=== PATIENT | female | born 1980 | race Caucasian/White ===

== ENCOUNTER 2017-03-14 12:40 | Inpatient (IN) | payer MEDICAID ==
[~2017-03-14] VITALS: Ht 157.5 cm; Wt 84.8 kg
[2017-03-14 12:46] VITALS: BP 156/109
[2017-03-14] MEDS ORDERED: NACL 0.9% 1,000 ML IV SCH (13:03)
[2017-03-14] MEDS ORDERED: KETOROLAC 30 MG/ML VIAL IVP ONE (13:05)
[2017-03-14] MEDS ORDERED: ONDANSETRON 4 MG/2 ML VIAL IVP ONE (13:05)
--- NOTE | 2017-03-14 13:36 | NUR ---
PATIENT PRESENTS TO ED WITH RUQ PAIN WITH MILD NAUSEA . PT STATES . DENIES V/D; SKIN IS PINK/WARM/DRY; AAOX4 WITH EVEN AND STEADY GAIT; LUNGS CLEAR BL; HR EVEN AND REGULAR; PT DENIES ANY FEVER, CP, SOB, OR COUGH AT THIS TIME; PATIENT STATES PAIN OF 9/10 AT THIS TIME; VSS; PATIENT POSITIONED FOR COMFORT; HOB ELEVATED; BEDRAILS UP X2; BED DOWN. ER MD MADE AWARE OF PT STATUS.
--- NOTE | 2017-03-14 13:37 | NUR ---
LABS COLLECTED AND SENT---PT AWAITS ULTRASOUND
[2017-03-14 13:43] LABS: BASOPHILS # (AUTO) 0.3 K/uL (0.00-0.22); BASOPHILS % (AUTO) 3.5 % (0.0-2.0); EOSINOPHILS # (AUTO) 0.1 K/uL (0-0.4); EOSINOPHILS % (AUTO) 0.9 % (0.0-4.0); HEMATOCRIT 24.9 % (36-48); HEMOGLOBIN 7.7 g/dL (12.0-16.0); LYMPHOCYTES # (AUTO) 1.5 K/uL (2.5-16.5); LYMPHOCYTES % (AUTO) 16.4 % (20.5-51.1); MEAN CORPUSCULAR HEMOGLOBIN 21 pg (27-31); MEAN CORPUSCULAR HGB CONC 31 g/dL (33-37); MEAN CORPUSCULAR VOLUME 66 fL (80-94); MONOCYTES # (AUTO) 0.7 K/uL (0.8-1.0); NEUTROPHILS # (AUTO) 6.8 K/uL (1.8-7.7); NEUTROPHILS % (AUTO) 72.2 % (42.2-75.2); PLATELET COUNT (AUTO) 403 K/uL (140-450); RED BLOOD CELL COUNT(AUTO) 3.76 MIL/uL (4.20-5.40); RED CELL DISTRIBUTION WIDTH 17.7 % (11.6-13.7); WHITE BLOOD COUNT (AUTO) 9.4 K/uL (4.8-10.8)
--- NOTE | 2017-03-14 14:00 | NUR ---
ULTRASOUND AT BEDSIDE ANA MARÍA Ac RN
[2017-03-14 14:04] LABS: ALBUMIN 2.8 g/dL (3.4-5.0); ANION GAP 7.7 (8-16); CARBON DIOXIDE 29.2 mmol/L (21-32); CREATININE 0.8 mg/dL (0.6-1.3); TOTAL BILIRUBIN 0.3 mg/dL (0.0-1.0)
[2017-03-14 14:09] LABS: POTASSIUM 2.9 mmol/L (3.5-5.1)
[2017-03-14 14:10] LABS: PROTHROMBIN TIME 10.9 secs (10.8-13.4)
[2017-03-14] MEDS ORDERED: MAG SULF 2000 MG/WATER PREMIX 50 ML IV ONE ×2 (14:15→15:00)
[2017-03-14] MEDS ORDERED: MORPHINE SULFATE 4 MG/ML SYR IVP ONE (14:15)
[2017-03-14] MEDS ORDERED: KCL 20 MEQ/WATER INJ PREMIX 100 ML IV ONE (14:15)
--- NOTE | 2017-03-14 14:16 | NUR ---
CRITICAL LAB POTASSIUM LOW--- NOTIFIED
[2017-03-14] MEDS ORDERED: PIPERACILLIN/TAZOBACTAM 3.375 GM in DEXTROSE 5% 50 ML IV ONE (14:30)
[2017-03-14] MEDS ORDERED: LORazepam 2 MG/ML VIAL IVP PRN (14:40)
[2017-03-14] MEDS ORDERED: ONDANSETRON 4 MG/2 ML VIAL IVP PRN (14:40)
[2017-03-14 14:49] LABS: BILIRUBIN,URINE NEGATIVE (NEGATIVE); BLOOD, URINE TRACE-I (NEGATIVE); COLOR,URINE YELLOW (YELLOW); LEUKOCYTE ESTERASE ,URINE 1+ (NEGATIVE); NITRITE, URINE NEGATIVE (NEGATIVE); PH,URINE 6.5 (5.0-9.0); UGLUCOSE NEGATIVE (NEGATIVE)
[2017-03-14] MEDS ORDERED: PIPERACILLIN/TAZOBACTAM 3.375 GM VIAL IV ONE (14:49)
[2017-03-14 15:11] LABS: APPEARANCE,URINE HAZY (CLEAR)
[2017-03-14 15:15] LABS: RBC,URINE 0-5 (RARE) /HPF (0-5)
[2017-03-14 16:00] VITALS: BP 126/83
--- NOTE | 2017-03-14 16:00 | NUR ---
PT [facility]. PT IS ALERT AND ORIENTED X 4. NORMAL SINUS RHYTHM ON MONITOR. PT IS ON ROOM AIR, O2 SAT 100%. BILATERAL LUNGS CLEAR UPON AUSCULTATION. PERIPHERAL IVS G20 TO RIGHT FOREARM AND LEFT ANTECUBITAL PATENT AND INTACT, INFUSING KCL AND MAG SULFATE ORDERED. ABDOMEN SOFT, TENDER, BOWEL SOUNDS PRESENT X 4 QUADRANTS. PT C/O MILD ABDOMINAL PAIN OF 3 OUT OF 10, STATED PAIN IS TOLERABLE AT THIS TIME. NO EDEMA NOTED. VSS, AFEBRILE. NO SIGNS OF ACUTE DISTRESS AT THIS TIME. DAUGHTER AT BEDSIDE. BED IN LOW POSITION AND CALL LIGHT WITHIN REACH. NEEDS WELL ATTENDED, SAFETY MEASURES ENSURED. WILL CONTINUE TO MONITOR.
[2017-03-14] MEDS: DEXT 5% /NACL 0.9% 1,000 ML IV SCH (18:31)
--- NOTE | 2017-03-14 19:05 | NUR ---
PT RESTING IN BED, ABLE TO MAKE NEEDS KNOWN. NO CHANGE IN LOC. WILL CONTINUE TO MONITOR.
--- NOTE | 2017-03-14 19:27 | NUR ---
REPORT GIVEN TO NOC SHIFT RN FOR CONTINUITY OF CARE. PT ON STABLE CONDITION.
--- NOTE | 2017-03-14 19:30 | NUR ---
RECEIVED PATIENT ON BED, ASLEEP; BREATHING EVEN AND UNLABORED.CARDIACSCOPE SHOWS ON SINUS RHYTHM HR 94/MIN. COMMENCING ON IVF D5NS 100 ML/HR VIA LEFT AC G20 IV CANNULA. KEPT STILL ON NPO ORDERED.
[2017-03-14 20:00] VITALS: BP 143/82
--- NOTE | 2017-03-14 20:00 | NUR ---
S/B FAMILY; INFORMED AND AWARE THAT PATIENT WILL BE TRANSFERRED TO TELE 119B ANYTIME SOON TONIGHT.
--- NOTE | 2017-03-14 20:30 | NUR ---
FOR TRANSFER TO TELE UNIT, REPORT GIVEN TO HOMERO GRAY.
--- NOTE | 2017-03-14 20:55 | NUR ---
TRANSFERRED TO TELE ROOM 119B PER BED; ENDORSED TO TELE NURSE FOR CONTINUITY OF CARE.
[2017-03-14 21:00] VITALS: BP 134/87
--- NOTE | 2017-03-14 21:00 | NUR ---
ADMITTED PATIENT TO THE TELE UNIT, PATIENT WAS SLEEPING IN BED, BUT EASY TO AROUSE, NO S/S OF DISTRESS NOTED, RESPIRATION EVEN AND UNLABORED, IV PATENT AND INTACT, INFUSING D5 NS AT 100ML/HR. VITAL SIGNS STABLE, TELE MONITOR PLACED ON PATIENT, ORIENTED PATIENT TO THE ROOM. CALL LIGHT WITHIN REACH, SAFETY MEASURE ENSURED, WILL CONTINUE TO MONITOR.
[2017-03-15] VITALS: BP 139/86
--- NOTE | 2017-03-15 00:12 | NUR ---
PATIENT WAS SLEEPING, EASY TO AROUSE. VITAL SIGNS STABLE, PATIENT STATED, " I HAVE BAD HEADACHE." UPON PAIN ASSESSMENT, PAIN 9/10, CALL LIGHT WITHIN REACH, SAFETY MEASURE ENSURED ,WILL CONTINUE TO MONITOR.
[2017-03-15] MEDS: MORPHINE SULFATE 4 MG/ML SYR IVP PRN ×4 (00:43→20:32)
[2017-03-15] MEDS: DEXT 5% /NACL 0.9% 1,000 ML IV SCH (00:44)
--- NOTE | 2017-03-15 00:44 | NUR ---
PATIENT WAS SLEEPING, EASY TO AROUSE, BP 139/86, HR 104, PAIN MEDICATION GIVEN BASED ON THE PAIN LEVEL /10. CALL LIGHT WITHIN REACH, SAFETY MEASURE ENSURED, WILL CONTINUE TO MONITOR.
--- NOTE | 2017-03-15 02:46 | NUR ---
NO CHANGE IN CONDITION, PATIENT WAS SLEEPING, BUT EASY TO AROUSE, NO S/S OF DISTRESS NOTED, RESPIRATION EVEN AND UNLABORED, CALL LIGHT WITHIN REACH, SAFETY MEASURE ENSURED, WILL CONTINUE TO MONITOR.
[2017-03-15 04:00] VITALS: BP 136/87
[2017-03-15] MEDS: MORPHINE SULFATE 2 MG/ML SYR IVP PRN ×3 (05:49→17:55)
--- NOTE | 2017-03-15 05:58 | NUR ---
PATIENT STATED PAIN 6/10, BP 137/84, HR 102, MORPHINE GIVE ORDERED. WILL CONTINUE TO MONITOR.
[2017-03-15 06:27] LABS: BASOPHILS # (AUTO) 0.1 K/uL (0.00-0.22); BASOPHILS % (AUTO) 1.2 % (0.0-2.0); EOSINOPHILS # (AUTO) 0.1 K/uL (0-0.4); EOSINOPHILS % (AUTO) 1.5 % (0.0-4.0); HEMATOCRIT 23.4 % (36-48); HEMOGLOBIN 7.1 g/dL (12.0-16.0); LYMPHOCYTES # (AUTO) 2.2 K/uL (2.5-16.5); MEAN CORPUSCULAR HEMOGLOBIN 20 pg (27-31); MEAN CORPUSCULAR HGB CONC 31 g/dL (33-37); MEAN CORPUSCULAR VOLUME 67 fL (80-94); MONOCYTES # (AUTO) 0.8 K/uL (0.8-1.0); MONOCYTES % (AUTO) 8.1 % (1.7-9.3); NEUTROPHILS # (AUTO) 6.4 K/uL (1.8-7.7); NEUTROPHILS % (AUTO) 66.2 % (42.2-75.2); PLATELET COUNT (AUTO) 392 K/uL (140-450); RED BLOOD CELL COUNT(AUTO) 3.49 MIL/uL (4.20-5.40); RED CELL DISTRIBUTION WIDTH 17.4 % (11.6-13.7); WHITE BLOOD COUNT (AUTO) 9.6 K/uL (4.8-10.8)
--- NOTE | 2017-03-15 06:44 | NUR ---
PATIENT IS SLEEPING, RESPIRATION EVEN AND UNLABORED, NO S/S OF DISTRESS NOTED, CALL LIGHT WITHIN REACH, SAFETY PRECAUTION MAINTAINED, WILL CONTINUE TO MONITOR.
[2017-03-15 06:51] LABS: ALBUMIN 2.4 g/dL (3.4-5.0); ANION GAP 7.1 (8-16); CARBON DIOXIDE 28.6 mmol/L (21-32); CREATININE 0.7 mg/dL (0.6-1.3); POTASSIUM 3.7 mmol/L (3.5-5.1); TOTAL BILIRUBIN 0.3 mg/dL (0.0-1.0)
--- NOTE | 2017-03-15 07:08 | NUR ---
ENDORSED PLAN OF CARE TO DAY SHIFT HOMERO BRENNAN, PATIENT IS IN STABLE CONDITION, NO S/S OF DISTRESS NOTED.
--- NOTE | 2017-03-15 07:30 | NUR ---
RECEIVED PT IN BED. ASLEEP. AROUSABLE TO VOICE. ALERT ORIENTEDX4. NO SOB NOTED. PT AMBULATORY. SAFETY PRECAUTION IN PLACE. CALL LIGHT WITHIN REACH.
[2017-03-15 08:00] VITALS: BP 134/77
--- NOTE | 2017-03-15 09:09 | NUR ---
PATIENT HAS BEEN SCREENED AND CATEGORIZED MODERATE NUTRITION RISK. PATIENT WILL BE SEEN WITHIN 3-5 DAYS OF ADMISSION. 03/17/17-03/19/[address]
[2017-03-15] MEDS: DEXT 5% / NACL 0.45% 1,000 ML IV SCH ×2 (10:50→20:48)
--- NOTE | 2017-03-15 11:14 | NUR ---
SPOKE WITH DR. LIEBERMAN AND MADE AWARE OF LAB AND GB US RESULT.
--- NOTE | 2017-03-15 11:16 | NUR ---
SPOKE TO DR. SANTIZO AND HE SAID HIS NOT AVAILABLE AND CALL DR. VALENCIA, PAGEGómez VALENCIA.
[2017-03-15 11:53] VITALS: BP 106/73
--- NOTE | 2017-03-15 15:17 | NUR ---
RECEIVED A CALL FROM DR. VALENCIA. WITH AN ORDER MADE FOR STAT CT ABDOMEN WITHOUT CONTRAST AND CARRIED OUT TORB. AND TO KEEP PT NPO FOR NOW.
--- NOTE | 2017-03-15 15:55 | NUR ---
RESEARCH DIRECTOR CAME TO SCHOOL CLEANER PT FOR CT OF ABDOMEN WITHOUT CONTRAST. PROVIDED WITH TICKET TO RIDE. PT TRANSFERRED BY WHEELCHAIR.
[2017-03-15 16:00] VITALS: BP 125/74
--- NOTE | 2017-03-15 17:12 | NUR ---
CT RESULT CALLED TO DR. CHANDLER.
--- NOTE | 2017-03-15 17:24 | NUR ---
PAGED DR. VALENCIA REGARDING RESULT OF CT ABDOMEN. AWAITING CALL BACK.
--- NOTE | 2017-03-15 18:58 | NUR ---
PT KEPT CLEAN, DRY, AND COMFORTABLE NEEDS ATTENDED, FOLLOWED UP WITH FNS REGARDING DIET CHANGE OF PT. NO SOB NOTED. DENIES ANY PAIN OR DISCOMFORT AT THIS TIME. FAMILY AT BEDSIDE. WILL ENDORSE TO NEXT SHIFT, PT ON STABLE CONDITION. FOR CONTINUITY OF CARE.
--- NOTE | 2017-03-15 19:21 | NUR ---
PT MADE AWARE OF DOCTOR ORDER FOR LAP MARIMAR TOMORROW. PT VERBALIZED UNDERSTANDING AND SIGNED CONSENT. CONSENT IN TO CHART. DR. VALENCIA TO SEE AND EXPLAIN TO PT PROCEDURE.
--- NOTE | 2017-03-15 19:41 | NUR ---
RECEIVED REPORT FROM DAY RN ANU, PATIENT RESTING IN BED, NO S/S OF DISTRESS NOTED, AWAKE ALERT ORIENTED X 4, RESPIRATION EVEN AND UNLABORED, IV PATENT AND INTACT, INFUSING D5 1/2NS AT 100ML/HR, CALL LIGHT WITHIN REACH, SAFETY MEASURE ENSURED, WILL CONTINUE TO MONITOR.
[2017-03-15 19:54] VITALS: BP 132/82
[2017-03-15] MEDS: LEVOFLOXACIN 500 MG/D5W PREMIX 100 ML IV SCH (20:22)
--- NOTE | 2017-03-15 20:41 | NUR ---
DUE MEDICATION GIVEN, PATIENT TOLERATED WELL. NO S/S OF DISTRESS NOTED, RESPIRATION EVEN AND UNLABORED, WILL CONTINUE TO MONITOR.
--- NOTE | 2017-03-15 20:46 | NUR ---
DR. VALENCIA CAME AND EXAMINED THE PATIENT AT THE BEDSIDE.
[2017-03-15] MEDS ORDERED: metroNIDAZOLE 500 MG/NS PREMIX 100 ML IV ONE (20:53)
[2017-03-15] MEDS: metroNIDAZOLE 250 MG/NS PREMIX 50 ML IV SCH (21:00)
--- NOTE | 2017-03-15 21:29 | NUR ---
JEWISH HISTORY PROFESSOR GAVE ME FLAGYL 500MG/100ML, WASTED 250MG/50ML, ADMINISTER FLAGYL 250MG/50ML, HOMERO GONZALES IS THE WITNESS.
[2017-03-16] VITALS (8 sets, daily range): BP systolic 118–136; BP diastolic 71–90
[2017-03-16] MEDS: MORPHINE SULFATE 2 MG/ML SYR IVP PRN ×4 (00:22→17:54)
--- NOTE | 2017-03-16 00:31 | NUR ---
PATIENT WAS SLEEPING, EASY TO AROUSE, VITAL SIGNS TAKEN, STABLE. PATIENT STATED," HEAD HURTS." UPON ASSESSMENT, PAIN 5/10, PAIN MEDICATION GIVEN, WILL CONTINUE TO MONITOR.
--- NOTE | 2017-03-16 02:18 | NUR ---
NO CHANGE IN CONDITION, PATIENT IS SLEEPING, RESPIRATION EVEN AND UNLABORED, CALL LIGHT WITHIN REACH, SAFETY MEASURE ENSURED, WILL CONTINUE TO MONITOR.
[2017-03-16] MEDS ORDERED: metroNIDAZOLE 500 MG/NS PREMIX 100 ML IV ONE (03:16)
[2017-03-16] MEDS: metroNIDAZOLE 250 MG/NS PREMIX 50 ML IV SCH ×3 (04:29→21:54)
--- NOTE | 2017-03-16 04:30 | NUR ---
LOADING MANAGER GAVE ME FLAGYL 500MG/100ML, WASTED 250MG/50ML, ADMINISTER FLAGYL 250MG/50ML, HOMERO FISHER IS THE WITNESS.
--- NOTE | 2017-03-16 05:19 | NUR ---
DUE MEDICATION GIVEN, PATIENT TOLERATED WELL, NO S/S OF DISTRESS NOTED, RESPIRATION EVEN AND UNLABORED, O2SAT 88%. CALL LIGHT WITHIN REACH, SAFETY MEASURE ENSURED, WILL CONTINUE TO MONITOR. Addendum: 03/16/17 at 0521 by Iris De La Cruz RN WRONG PATIENT
[2017-03-16] MEDS: DEXT 5% / NACL 0.45% 1,000 ML IV SCH ×4 (06:55→18:50)
--- NOTE | 2017-03-16 07:05 | NUR ---
ENDORSED PLAN OF CARE TO DAY RN ANABELL. PATIENT IS STABLE. NO S/S OF DISTRESS NOTED.
--- NOTE | 2017-03-16 07:06 | NUR ---
RECEIVED REPORT FROM RECEIVER BULK SYSTEM NURSE. PATIENT IN STABLE CONDITION. NO DISTRESS NOTED. PATIENT IS SLEEPING, AROUSABLE BY VOICE. RESPIRATIONS EVEN, UNLABORED, ON ROOM AIR. IV SITE INTACT, PATENT, AND INFUSING IVF ORDERS. AAOX4, CALM, COOPERATIVE, SKIN COLOR APPROPRIATE TO ETHNICITY, WARM TO TOUCH. PATIENT AWARE THAT SHE WILL BE HAVING SURGERY TODAY SCHEDULED AT 0800. ABDOMEN SOFT, NON-DISTENDED. PAIN ON ABD WITHIN TOLERABLE AT THIS TIME. LUNGS CTA ON ALL LOBES. REVIEWED PLAN OF CARE WITH PATIENT. PATIENT VERBALIZED UNDERSTANDING. SAFETY MEASURES IN PLACE, CALL LIGHT WITHIN REACH, FALL PREVENTIONS IN PLACE. WILL CONTINUE TO MONITOR.
--- NOTE | 2017-03-16 07:30 | NUR ---
PATIENT TAKEN TO OR BY BARBARA/BED. WILL CONTINUE TO MONITOR.
[2017-03-16] MEDS ORDERED: HYDROmorphone PFS 2 MG/ML SYR ONE (08:08)
[2017-03-16] MEDS ORDERED: fentaNYL 0.05 MG/ML VIAL ONE (08:08)
[2017-03-16] MEDS ORDERED: KETOROLAC 30 MG/ML VIAL IVP ONE (09:25)
[2017-03-16] MEDS ORDERED: PHENYLEPHRINE 10 MG/ML VIAL IV ONE ×2 (09:25→10:01)
[2017-03-16] MEDS ORDERED: ONDANSETRON 4 MG/2 ML VIAL IVP ONE ×2 (09:25→10:01)
[2017-03-16] MEDS ORDERED: DEXAMETHASONE 4 MG/ML VIAL IVP ONE (09:25)
[2017-03-16] MEDS ORDERED: ROCURONIUM 50 MG/5 ML VIAL IV ONE ×2 (09:25→10:01)
[2017-03-16] MEDS ORDERED: DESFLURANE 240 ML BTL INH ONE ×2 (09:25→10:01)
[2017-03-16] MEDS ORDERED: PROPOFOL 200 MG/20 ML VIAL IV ONE ×2 (09:25→10:01)
[2017-03-16] MEDS ORDERED: GLYCOPYRROLATE 0.2 MG/ML VIAL IV ONE ×2 (09:25→10:01)
[2017-03-16] MEDS ORDERED: HYDROmorphone PFS 2 MG/ML SYR IVP PRN (09:50)
[2017-03-16] MEDS ORDERED: ALBUTEROL 0.083% 2.5 MG/3 ML NEBU INH SCH ×2 (09:50→10:56)
[2017-03-16] MEDS ORDERED: ONDANSETRON 4 MG/2 ML VIAL IVP PRN ×2 (09:50→11:00)
--- NOTE | 2017-03-16 10:40 | NUR ---
PATIENT BACK ON UNIT FROM OR RECOVERY ROOM. RECEIVED REPORT FROM OR NURSE. PATIENT IN STABLE CONDITION, V/S ARE WNL. RESPIRATIONS EVEN, UNLABORED, ON O2 2L/MIN VIA NC WITH O2 SAT 96%. PATIENT IS DROWSY AND DENIES ANY PAIN AT THIS TIME. PATIENT IS S/P LAP MARIMAR AND HAS 4 ABDOMINAL INCISIONAL WOUNDS WITH BANDAIDS ON THEM THAT ARE DRY AND INTACT. AAOX3, DROWSY, CALM, COOPERATIVE, SKIN COLOR APPROPRIATE TO ETHNICITY, WARM TO TOUCH. IV SITE IS INTACT, PATENT, AND INFUSING IVF PER ORDERS. 1 UNIT OF BLOOD WAS GIVEN AT RECOVERY ROOM. SAFETY MEASURES IN PLACE, CALL LIGHT WITHIN REACH. WILL CONTINUE TO MONITOR.
--- NOTE | 2017-03-16 12:30 | NUR ---
PATIENT SITTING IN BED WITH LUNCH TRAY IN FRONT. NO DISTRESS NOTED. DENIES ANY PAIN. NO BLEEDING NOTED ON ABDOMINAL S/P LAP MARIMAR. RESPIRATIONS EVEN, UNLABORED, ON O2 2L/MIN VIA NC. PATIENT TOLERATING LUNCH VERY WELL. NO NAUSEA/VOMIT REPORTED. SAFETY MEASURES IN PLACE, CALL LIGHT WITHIN REACH. WILL CONTINUE TO MONITOR.
[2017-03-16 13:44] LABS: HEMATOCRIT 28.9 % (36-48); HEMOGLOBIN 8.9 g/dL (12.0-16.0)
--- NOTE | 2017-03-16 15:12 | NUR ---
PATIENT IS SLEEPING, AROUSABLE BY VOICE. FAMILY MEMBER AT BEDSIDE. NO DISTRESS NOTED. RESPIRATIONS EVEN, UNLABORED, ON O2 2L/MIN VIA NC. DENIES ANY PAIN, DENIES ANY NAUSEA/VOMITING. ABDOMEN S/L LAP MARIMAR WOUNDS DRESSING DRY AND INTACT. SAFETY MEASURES IN PLACE, CALL LIGHT WITHIN REACH. WILL CONTINUE TO MONITOR.
--- NOTE | 2017-03-16 17:50 | NUR ---
PATIENT LYING IN BED WITH COMPLAINTS OF ABD PAIN, WILL MEDICATE WITH MORPHINE ORDERS. NO DISTRESS NOTED. RESPIRATIONS EVEN, UNLABORED, ON ROOM AIR. DENIES ANY NAUSEA/VOMITING. SAFETY MEASURES IN PLACE, CALL LIGHT WITHIN REACH. WILL CONTINUE TO MONITOR.
--- NOTE | 2017-03-16 19:14 | NUR ---
RECEIVED FROM AM RN IN BED AWAKE AND ALERT. FAMILY MEMBERS IN HERE VISITING AND ABLE TO VERBALIZE WELL. NO SOB. DRESSING TO S/P LAP CHOLECYSTECTOMY TODAY INTACT. CALL LIGHT WITH IN REACH AND ENCOURAGED TO CALL FOR ANY HELP SHE MAY NEED OR IF IN PAIN. ORIENTED X 4. ROM X 4. IVF SITE TO LAC#20 INTACT AND NO INFILTRATION NOTED.
--- NOTE | 2017-03-16 19:20 | NUR ---
GAVE REPORT TO MINUTE CLERK FOR BASIC TRAFFIC NURSE FOR CONTINUITY OF CARE. PATIENT IN STABLE CONDITION.
--- NOTE | 2017-03-16 19:30 | NUR ---
RECEIVED FROM AM RN IN BED WITH VISITORS . VERBALIZES WELL. NO SOB. DENIES PAIN AT TH IS TIME. CALL LIGHT WITH IN REACH. S/P LAP CHOLECYSTECTOMY TODAY. NO BLEEDING TO SURGICAL SITES.
[2017-03-16] MEDS: MORPHINE SULFATE 4 MG/ML SYR IVP PRN (20:59)
[2017-03-16] MEDS: LEVOFLOXACIN 500 MG/D5W PREMIX 100 ML IV SCH (21:00)
--- NOTE | 2017-03-16 23:29 | NUR ---
VITAL SIGNS TAKEN. SLEEPING BUT WOKE UP EASILY. NO COMPLAINTS DONE.
[2017-03-17 00:20] VITALS: BP 117/71
[2017-03-17] MEDS: DEXT 5% / NACL 0.45% 1,000 ML IV SCH (02:40)
--- NOTE | 2017-03-17 03:02 | NUR ---
SLEEPING. NO COMPLAINTS AT THIS TIME. CALL LIGHT WITH IN REACH.
[2017-03-17] MEDS: metroNIDAZOLE 250 MG/NS PREMIX 50 ML IV SCH (04:15)
[2017-03-17 06:51] LABS: BASOPHILS # (AUTO) 0.1 K/uL (0.00-0.22); BASOPHILS % (AUTO) 0.4 % (0.0-2.0); EOSINOPHILS # (AUTO) 0.1 K/uL (0-0.4); EOSINOPHILS % (AUTO) 0.6 % (0.0-4.0); HEMATOCRIT 26.8 % (36-48); HEMOGLOBIN 8.2 g/dL (12.0-16.0); LYMPHOCYTES # (AUTO) 2.2 K/uL (2.5-16.5); LYMPHOCYTES % (AUTO) 16.9 % (20.5-51.1); MEAN CORPUSCULAR HEMOGLOBIN 21 pg (27-31); MEAN CORPUSCULAR HGB CONC 31 g/dL (33-37); MEAN CORPUSCULAR VOLUME 70 fL (80-94); MONOCYTES % (AUTO) 7.7 % (1.7-9.3); NEUTROPHILS # (AUTO) 9.5 K/uL (1.8-7.7); NEUTROPHILS % (AUTO) 74.4 % (42.2-75.2); PLATELET COUNT (AUTO) 446 K/uL (140-450); RED BLOOD CELL COUNT(AUTO) 3.83 MIL/uL (4.20-5.40); RED CELL DISTRIBUTION WIDTH 19.4 % (11.6-13.7); WHITE BLOOD COUNT (AUTO) 12.9 K/uL (4.8-10.8)
[2017-03-17 06:53] LABS: CARBON DIOXIDE 27.9 mmol/L (21-32); CREATININE 0.7 mg/dL (0.6-1.3); POTASSIUM 3.9 mmol/L (3.5-5.1)
--- NOTE | 2017-03-17 07:16 | NUR ---
SLEEPING.ENDORSED TO THE NEXT RN FOR CONTINUITY OF CARE. WOKE UP EASILY WHEN CALLED BY NAME.
--- NOTE | 2017-03-17 07:17 | NUR ---
PT SLEEPING IN BED ON RA, PT A/OX4, NO S/S OF ACUTE DISTRESS, IV PATENT AND INTACT, SAFETY PRECAUTIONS TAKEN, CALL LIGHT WITHIN REACH, WILL CONT TO MONITOR.
[2017-03-17 07:57] VITALS: BP 135/85
[2017-03-17] MEDS ORDERED: NITR100C7 PO (09:29)
[2017-03-17] MEDS ORDERED: FERR325E14 PO (09:29)
[2017-03-17 10:30] VITALS: BP 135/85
--- NOTE | 2017-03-17 11:43 | NUR ---
PT DISCHARGED FROM UNIT, PT A/OX4, PT VERBALIZED UNDERSTANDING OF DISCHARGE, IV TAKEN OUT AND INTACT, PT DENIES PAIN, PT DISCHARGED VIA WHEELCHAIR, NO S/S OF ACUTE DISTRESS, PT IN STABLE CONDITION, FAMILY WAITING IN LOBBY.
== END 2017-03-17 11:38 | disposition home or self-care (01) | DRG 263 ==
LOC: MED 12:40 → MIC 14:40 → MTU 21:00
PROVIDERS: ADMIT Preventive Medicine Preventive Medicine/Occupational Environmental Medicine; ATTEND Preventive Medicine Preventive Medicine/Occupational Environmental Medicine
PROC: 30233N1 Transfusion of Nonautologous Red Blood Cells into Peripheral Vein, Percutaneous Approach (ICD-10-PCS; 2017-03-16)
PROC: 0FT44ZZ Resection of Gallbladder, Percutaneous Endoscopic Approach (ICD-10-PCS; principal; 2017-03-16 07:30)
DX: K80.00 Calculus of gallbladder with acute cholecystitis without obstruction (principal); E43 Unspecified severe protein-calorie malnutrition; E87.1 Hypo-osmolality and hyponatremia; E87.6 Hypokalemia; B96.20 Unspecified Escherichia coli [E. coli] as the cause of diseases classified elsewhere; N39.0 Urinary tract infection, site not specified; E88.09 Other disorders of plasma-protein metabolism, not elsewhere classified; K66.0 Peritoneal adhesions (postprocedural) (postinfection); N20.0 Calculus of kidney; Z72.0 Tobacco use; D50.9 Iron deficiency anemia, unspecified; R73.9 Hyperglycemia, unspecified
CPT/HCPCS: 36415; 74150; 76705; 80048; 80053; 81001; 82374; 83605; 83690; 85018; 85025; 85610; 85651; 85730; 86140; 86886; 86900; 86901; 86920; 87040; 87081; 87086; 87186; 88304; 96361; 96365; 96375; 99285; C1887; J1100; J1170; J1885; J1956; J2270; J2370; J2405; J2543; J2704; J3010; J3475; J3480; J3490; J7030; J7060; P9016; Q0092

== ENCOUNTER 2017-11-07 00:58 | Emergency (ER) | payer MEDICAID ==
[~2017-11-07] VITALS: Ht 157.5 cm; Wt 87.6 kg
[~2017-11-07 00:58] MED LIST: FERR325E14 PO; NITR100C7 PO
[2017-11-07 01:05] VITALS: BP 169/90
--- NOTE | 2017-11-07 01:11 | NUR ---
TO BED # 9 AMBULATORY , REPORT GIVEN TO NEHEMIAH VALENTIN
--- NOTE | 2017-11-07 01:11 | NUR ---
PATIENT PRESENTS TO ED WITH LLQ, NON-RADIATING ABD PAIN X1 DAY. PT STATES NAUSEA WITHOUT VOMITING OR DIARRHEA. PT STATES FEBRILE AT HOME. DENIES N/V/D; SKIN IS PINK/WARM/DRY; AAOX4 WITH EVEN AND STEADY GAIT; LUNGS CLEAR BL; PT IS TACHY AT 107 WITH TEMP OF 100.4; PT DENIES ANY, CP, SOB, OR COUGH AT THIS TIME; PATIENT STATES PAIN OF 10/10 AT THIS TIME; VSS; PATIENT POSITIONED FOR COMFORT; HOB ELEVATED; BEDRAILS UP X2; BED DOWN. ER MD MADE AWARE OF PT STATUS. CONTINUE TO MONITOR
[2017-11-07] MEDS ORDERED: NACL 0.9% 1,000 ML IV SCH (01:19)
[2017-11-07] MEDS ORDERED: ACETAMINOPHEN EXTRA STRENGTH 500 MG TAB PO ONE (01:20)
[2017-11-07] MEDS ORDERED: ONDANSETRON 4 MG/2 ML VIAL IVP ONE (01:20)
[2017-11-07] MEDS ORDERED: MORPHINE SULFATE 4 MG/ML SYR IVP ONE (01:20)
[2017-11-07] MEDS ORDERED: KETOROLAC 30 MG/ML VIAL IVP ONE (01:20)
[2017-11-07 01:48] LABS: HEMATOCRIT 31.4 % (36-48); HEMOGLOBIN 9.8 g/dL (12.0-16.0); MEAN CORPUSCULAR HEMOGLOBIN 21 pg (27-31); MEAN CORPUSCULAR HGB CONC 31 g/dL (33-37); MEAN CORPUSCULAR VOLUME 67.2 fL (80-94); NEUTROPHILS % (AUTO) 74.8 % (42.2-75.2); PLATELET COUNT (AUTO) 240 K/uL (140-450); RED BLOOD CELL COUNT(AUTO) 4.68 MIL/uL (4.20-5.40); RED CELL DISTRIBUTION WIDTH 17.5 % (11.6-13.7); WHITE BLOOD COUNT (AUTO) 11.3 K/uL (4.8-10.8)
[2017-11-07 01:49] LABS: APPEARANCE,URINE SL CLOUDY (CLEAR); BILIRUBIN,URINE NEGATIVE (NEGATIVE); BLOOD, URINE 2+ (NEGATIVE); COLOR,URINE YELLOW (YELLOW); LEUKOCYTE ESTERASE ,URINE 1+ (NEGATIVE); NITRITE, URINE NEGATIVE (NEGATIVE); UGLUCOSE NEGATIVE (NEGATIVE)
[2017-11-07 01:49] LABS: BASOPHILS % (AUTO) 0.2 % (0.0-2.0); EOSINOPHILS % (AUTO) 0.5 % (0.0-4.0); LYMPHOCYTES # (AUTO) 1.3 K/uL (2.5-16.5); LYMPHOCYTES % (AUTO) 11.1 % (20.5-51.1); MONOCYTES # (AUTO) 1.5 K/uL (0.8-1.0); MONOCYTES % (AUTO) 13.4 % (1.7-9.3); NEUTROPHILS # (AUTO) 8.4 K/uL (1.8-7.7)
[2017-11-07 01:50] LABS: EOSINOPHILS # (AUTO) 0.1 K/uL (0-0.4)
[2017-11-07 02:01] LABS: RBC,URINE 3-10 (FEW) /HPF (0-5)
[2017-11-07 02:02] LABS: ANION GAP 10.9 (8-16); CARBON DIOXIDE 26.8 mmol/L (21-32)
[2017-11-07 02:03] LABS: CREATININE 1.2 mg/dL (0.6-1.3); TOTAL BILIRUBIN 0.5 mg/dL (0.0-1.0)
[2017-11-07 02:04] LABS: ALBUMIN 3.2 g/dL (3.4-5.0)
[2017-11-07 02:06] LABS: POTASSIUM 2.7 mmol/L (3.5-5.1)
--- NOTE | 2017-11-07 02:06 | NUR ---
CRITICAL LAB RECIEVED: K 2.7. DR BRAGG INFORMED IMMEDIATELY.
[2017-11-07] MEDS ORDERED: KCL 20 MEQ/WATER INJ PREMIX 100 ML IV ONE (02:10)
[2017-11-07] MEDS ORDERED: cefTRIAXone 1,000 MG in DEXT 5% MINI-BAG PLUS 50 ML IV ONE (02:15)
[2017-11-07] MEDS ORDERED: cefTRIAXone 1,000 MG VIAL ONE (02:21)
--- NOTE | 2017-11-07 04:20 | NUR ---
Patient discharged with v/s stable. Written and verbal after care instructions given and explained. Patient alert, oriented and verbalized understanding of instructions. Ambulatory with steady gait. All questions addressed prior to discharge. ID band removed. Patient advised to follow up with PMD. Rx of KEFLEX, MOTRIN, given. Patient educated on indication of medication including possible reaction and side effects. Opportunity to ask questions provided and answered. IV removed, catheter intact and site benign. Applied folded 4x4 gauze and tape to stop bleeding.
[2017-11-07 04:23] VITALS: BP 116/80
== END 2017-11-07 04:20 | disposition home or self-care (01) ==
LOC: MED 00:58
DX: N39.0 Urinary tract infection, site not specified (principal); E87.6 Hypokalemia; Z79.899 Other long term (current) drug therapy
CPT/HCPCS: 36415; 74176; 80053; 81001; 82150; 83690; 85025; 87086; 96365; 96366; 96368; 96375; 99285; J0696; J1885; J2270; J2405; J3480

== ENCOUNTER 2021-01-06 21:42 | Inpatient (IN) | payer MEDICAID, SELFPAY ==
[~2021-01-06] VITALS: Ht 157.5 cm; Wt 95.7 kg
[2021-01-06 22:24] VITALS: BP 150/93
--- NOTE | 2021-01-06 23:36 | NUR ---
PT IN TRAIGE BEING ASSESSED BY ERMD.
--- NOTE | 2021-01-06 23:41 | NUR ---
PT AMBULATED TO [facility]
[2021-01-06] MEDS ORDERED: PIPERACILLIN/TAZOBACTAM 3.375 GM in DEXTROSE 5% 50 ML IV ONE (23:50)
--- NOTE | 2021-01-06 23:54 | NUR ---
PT AMBULATED TO BED 09.
[2021-01-07] MEDS ORDERED: PIPERACILLIN/TAZOBACTAM 3.375 GM VIAL IV ONE (00:10)
--- NOTE | 2021-01-07 00:15 | NUR ---
C/C RIGHT BREAST PAIN, PT STATES SHE NOTICED "BUMP" IN HER RIGHT BREAST X 1 WEEK AGO. REDNESS NOTED TO SITE. -N/V/D, FEVER, CHILLS, CP OR SOB. MED HX: DENIES ALLERGIES: NKA
--- NOTE | 2021-01-07 00:18 | NUR ---
US AT BEDSIDE.
[2021-01-07 00:25] LABS: BASOPHILS % (AUTO) 0.4 % (0.0-2.0); EOSINOPHILS # (AUTO) 0.3 K/uL (0-0.4); EOSINOPHILS % (AUTO) 2.7 % (0.0-4.0); HEMATOCRIT 31.2 % (36-48); HEMOGLOBIN 9.7 g/dL (12.0-16.0); LYMPHOCYTES % (AUTO) 27.5 % (20.5-51.1); MEAN CORPUSCULAR HEMOGLOBIN 20 pg (27-31); MEAN CORPUSCULAR HGB CONC 31 g/dL (33-37); MEAN CORPUSCULAR VOLUME 65.5 fL (80-94); MONOCYTES % (AUTO) 8.9 % (1.7-9.3); NEUTROPHILS # (AUTO) 6.5 K/uL (1.8-7.7); NEUTROPHILS % (AUTO) 60.5 % (42.2-75.2); PLATELET COUNT (AUTO) 295 K/uL (140-450); RED BLOOD CELL COUNT(AUTO) 4.76 MIL/uL (4.20-5.40); RED CELL DISTRIBUTION WIDTH 19.4 % (11.6-13.7); WHITE BLOOD COUNT (AUTO) 10.8 K/uL (4.8-10.8)
[2021-01-07 00:38] LABS: ALBUMIN 3.5 g/dL (3.4-5.0); ANION GAP 10.2 (8-16); CARBON DIOXIDE 27.1 mmol/L (21-32); CREATININE 0.8 mg/dL (0.6-1.3); POTASSIUM 3.3 mmol/L (3.5-5.1); TOTAL BILIRUBIN 0.2 mg/dL (0.0-1.0)
[2021-01-07] MEDS ORDERED: ONDANSETRON 4 MG/2 ML VIAL IM/IVP PRN (00:55)
[2021-01-07] MEDS ORDERED: ACETAMINOPHEN 325 MG TAB PO PRN (00:55)
[2021-01-07] MEDS ORDERED: HYDROcodone/APAP 5/325 MG 1 TAB TAB PO PRN (00:55)
[2021-01-07] MEDS ORDERED: SODIUM PHOS / POTASSIUM PHOS 1 PKT PDR PO PRN (00:55)
[2021-01-07] MEDS ORDERED: MAGNESIUM OXIDE 400 MG TAB PO PRN (00:55)
[2021-01-07] MEDS ORDERED: DOCUSATE SODIUM 100 MG GELCAP PO PRN (00:55)
[2021-01-07] MEDS ORDERED: POTASSIUM CHLORIDE 10 MEQ TABER PO PRN (00:55)
[2021-01-07] MEDS ORDERED: KETOROLAC 30 MG/ML VIAL IVP ONE (00:55)
[2021-01-07] MEDS ORDERED: diphenhydrAMINE 50 MG/ML VIAL ONE (00:59)
[2021-01-07] MEDS ORDERED: diphenhydrAMINE 50 MG/ML VIAL IVP ONE (01:00)
--- NOTE | 2021-01-07 01:23 | NUR ---
PT IS DROWSY, ANSWERS QUESTION APPROPRIATELY, SENSE OF HUMOR CONTINUES, PT IS IN STABLE CONDITION. VSS.
--- NOTE | 2021-01-07 01:23 | NUR ---
FOR 52 PT HAD REACTION TO ANTIBIOTIC, BEGAN COMPLAINING OF SOB AND CHEST PAIN, HIVES ON BACK AND R AC ERMD MADE AWARE. VSS REMAINED STABLE. ERMD MADE AWARE, ORDERS CARRIED OUT.
[2021-01-07 01:30] LABS: MAGNESIUM 1.8 mg/dL (1.8-2.4); PHOSPHORUS 3.8 mg/dL (2.5-4.9)
--- NOTE | 2021-01-07 01:30 | NUR ---
at bedside. pt is sitting up, drowsiness continues. pt is in stable condition. all needs met at this time.
[2021-01-07] MEDS: NACL 0.9% 1,000 ML IV SCH ×2 (01:34→17:54)
--- NOTE | 2021-01-07 02:23 | NUR ---
pt is resting. equal rise and fall of chest wall. vss. pt is in stable condition, side rails x2, bed locked in lowest position.
--- NOTE | 2021-01-07 04:04 | NUR ---
pt is resting. equal rise and fall of chest wall. vss. pt is in stable condition, side rails x2, bed locked in lowest position. daughter at bedside.
--- NOTE | 2021-01-07 06:19 | NUR ---
pt is awake and drowsy, able to answer questions and verbalizes need. pt is in stable condition,vss. all needs met at this time. daughter at bedside. bed locked in lowest position, side rails x2.
--- NOTE | 2021-01-07 06:25 | NUR ---
ambulated to and back to bed with steady gait.
--- NOTE | 2021-01-07 07:34 | NUR ---
report given to geovany mcdonald. transfer of care at this time.
--- NOTE | 2021-01-07 08:00 | NUR ---
Patient will be admitted to care of Dr. Chan. Admited to Med/Surg. Will go to room 103A. Belongings list completed. Report to Eli.
[2021-01-07 08:26] VITALS: BP 144/78
--- NOTE | 2021-01-07 08:26 | NUR ---
RECEIVED PATIENT FROM ER VIA RGRUETLI LAAGER. PATIENT IS BEING ADMITTED FOR BREAST ABSCESS. PATIENT IS A&O X4. PATIENT'S RESPIRATIONS ARE EVEN AND UNLABORED ON ROOM AIR, WITH O2 AT 99%. BP IS 144/78, HR IS 72, TEMP IS 97.7. PATIENT DOES NOT COMPLAIN OF ANY PAIN AT THIS TIME. ALL SAFETY PRECAUTIONS IN PLACE. WILL CONTINUE TO MONITOR.
[2021-01-07] MEDS: FERROUS SULFATE 325 MG TABEC PO SCH ×2 (10:27→21:11)
[2021-01-07] MEDS: PANTOPRAZOLE 40 MG TABEC PO SCH (10:27)
--- NOTE | 2021-01-07 10:30 | NUR ---
ADMINISTERED SCHEDULED MEDICATIONS. PATIENT VERBALIZED UNDERSTANDING. PATIENT'S DAUGHTER ISAIAH IS ALSO AT BEDSIDE. PATIENT HAS A LEFT 20G AC WITH NS RUNNING AT 60. IV SITE IS FLUSHING WELL, DRY, PATIENT AND INTACT. ALL SAFETY PRECAUTIONS IN PLACE.
--- NOTE | 2021-01-07 12:45 | NUR ---
PATIENT IS RESTING IN BED. NO S/S OF DISTRESS. PATIENT DENIES PAIN. ALL SAFETY PRECAUTIONS IN PLACE. WILL CONTINUE TO MONITOR.
--- NOTE | 2021-01-07 12:55 | NUR ---
PATIENT'S DAUGHTER AT BEDSIDE. PATIENT REMAINS STABLE. ALL SAFETY PRECAUTIONS IN PLACE.
--- NOTE | 2021-01-07 15:00 | NUR ---
PATIENT'S BOYFRIEND AT BEDSIDE. PATIENT IS STILL RESTING. NO S/S OF DISTRESS. ALL SAFETY PRECAUTIONS IN PLACE.
--- NOTE | 2021-01-07 15:14 | NUR ---
PATIENT HAS BEEN SCREENED AND CATEGORIZED LOW NUTRITION RISK. PATIENT WILL BE SEEN WITHIN 7 DAYS OF ADMISSION. 01/13/[address]
[2021-01-07 16:00] VITALS: BP 153/78
--- NOTE | 2021-01-07 19:32 | NUR ---
ENDORSED PATIENT TO LANDMEN RN FOR CONTINUITY OF CARE. PATIENT IS STABLE.
[2021-01-07 20:00] VITALS: BP 125/70
[2021-01-07] MEDS: MORPHINE SULFATE 2 MG/ML SYR IVP PRN (21:13)
--- NOTE | 2021-01-08 07:15 | NUR ---
RECEIVED BEDSIDE REPORT FROM ADMINISTRATIVE JOB TITLES NURSE FOR CONTINUITY OF CARE. PT IS AWAKE AND ALERT. A&OX4. ON RA WITH BREATHING UNLABORED. PT IS AMBULATORY INDEPENDENTLY. SKIN IS WARM AND DRY. SKIN IS NOT INTACT ON THE RIGHT BREAST. IV IS IN THE LEFT ARM 20 GAUGE RUNNING NS AT 60 ML PER HOUR PER ORDER. PT IS STABLE AT THIS TIME. PLAN OF CARE DISCUSSED.
[2021-01-08 07:30] LABS: BASOPHILS % (AUTO) 0.4 % (0.0-2.0); EOSINOPHILS # (AUTO) 0.3 K/uL (0-0.4); EOSINOPHILS % (AUTO) 2.4 % (0.0-4.0); HEMATOCRIT 30.7 % (36-48); HEMOGLOBIN 9.6 g/dL (12.0-16.0); LYMPHOCYTES # (AUTO) 2.4 K/uL (2.5-16.5); LYMPHOCYTES % (AUTO) 23.2 % (20.5-51.1); MEAN CORPUSCULAR HEMOGLOBIN 21 pg (27-31); MEAN CORPUSCULAR HGB CONC 31 g/dL (33-37); MEAN CORPUSCULAR VOLUME 65.5 fL (80-94); MONOCYTES # (AUTO) 0.6 K/uL (0.8-1.0); MONOCYTES % (AUTO) 6.1 % (1.7-9.3); NEUTROPHILS # (AUTO) 7.1 K/uL (1.8-7.7); NEUTROPHILS % (AUTO) 67.9 % (42.2-75.2); PLATELET COUNT (AUTO) 267 K/uL (140-450); RED BLOOD CELL COUNT(AUTO) 4.68 MIL/uL (4.20-5.40); RED CELL DISTRIBUTION WIDTH 19.1 % (11.6-13.7); WHITE BLOOD COUNT (AUTO) 10.5 K/uL (4.8-10.8)
[2021-01-08 07:35] LABS: ANION GAP 13.2 (8-16); CARBON DIOXIDE 22.5 mmol/L (21-32); CREATININE 0.7 mg/dL (0.6-1.3); POTASSIUM 3.7 mmol/L (3.5-5.1)
[2021-01-08 08:00] VITALS: BP 148/92
[2021-01-08] MEDS: PANTOPRAZOLE 40 MG TABEC PO SCH (09:00)
[2021-01-08] MEDS: FERROUS SULFATE 325 MG TABEC PO SCH (09:00)
[2021-01-08] MEDS: MORPHINE SULFATE 2 MG/ML SYR IVP PRN (09:17)
--- NOTE | 2021-01-08 09:17 | NUR ---
PT STATES PAIN AT A SCALE OF 10/10 IN THE RIGHT BREAST. PT STATES THE PAIN ACHING. PT WAS GIVEN MORPHINE FOR PAIN IVP.
[2021-01-08] MEDS: CLINDAMYCIN 600 MG in DEXTROSE 5% 50 ML IV SCH ×2 (09:18→14:27)
[2021-01-08] MEDS: NACL 0.9% 1,000 ML IV SCH (10:19)
--- NOTE | 2021-01-08 11:10 | NUR ---
PT WAS TAKEN TO THE OR WITH TWO OR NURSES. PT IS STABLE AT THIS TIME. NO DISTRESS NOTED. RINGS WERE REMOVED AND PT CHANGED INTO GOWN BEFORE LEAVING. LAB JUST EVA TYPE AND SCREEN AND PT/PTT.
[2021-01-08] MEDS ORDERED: BUPIVACAINE-MPF/EPI 0.25% 30 ML VIAL INJ ONE (11:20)
[2021-01-08] MEDS ORDERED: LIDOCAINE 1% 500 MG/50 ML VIAL ONE (11:20)
[2021-01-08] MEDS ORDERED: PROPOFOL 200 MG/20 ML VIAL IV ONE (11:28)
[2021-01-08] MEDS ORDERED: fentaNYL citrate 0.05 MG/ML VIAL ONE (11:29)
[2021-01-08 11:30] LABS: PROTHROMBIN TIME 9.9 secs (10.8-13.4)
[2021-01-08] MEDS ORDERED: ONDANSETRON 4 MG/2 ML VIAL ONE (11:31)
[2021-01-08] MEDS ORDERED: METOCLOPRAMIDE 10 MG/2 ML INJ VIAL ONE (11:31)
[2021-01-08] MEDS ORDERED: DEXAMETHASONE 4 MG/ML VIAL ONE (11:32)
[2021-01-08] MEDS ORDERED: HYDROmorphone 1 MG/ML AMP IVP PRN ×2 (11:45→13:20)
[2021-01-08] MEDS ORDERED: ONDANSETRON 4 MG/2 ML VIAL IVP PRN (11:45)
[2021-01-08] MEDS ORDERED: KETOROLAC 30 MG/ML VIAL ONE (11:52)
--- NOTE | 2021-01-08 13:15 | NUR ---
PT IS BACK FROM THE OR. DRESSING IS INTACT ON THE RIGHT BREAST. DRESSING IS DRY. PT DENIES PAIN AT THIS TIME. BREATHING IS UNLABORED ON RA. WILL CONTINUE TO MONITOR.
[2021-01-08] MEDS ORDERED: HYDROcodone/APAP 5/325 MG 1 TAB TAB PO PRN (13:20)
--- NOTE | 2021-01-08 15:30 | NUR ---
ALL POST OP VITAL SIGNS ARE COMPLETE AND VS HAVE BEEN STABLE. PT'S BREATHING IS UNLABORED. NO RESPIRATORY DISTRESS NOTED ON RA. PT IS SLEEPING BUT EASILY WAKES UP WHEN CALLED BY NAME. BOYFRIEND AT BEDSIDE.
[2021-01-08 16:00] VITALS: BP 129/88
--- NOTE | 2021-01-08 16:00 | NUR ---
PT WAS ASSISTED TO THE RESTROOM. SHE HAD A STEADY GAIT WITH STANDBY ASSISTANCE. NO DISTRESS NOTED. PT DENIES PAIN.
[2021-01-08] MEDS ORDERED: LACT1TAB35 PO ×2 (16:20→18:48)
[2021-01-08] MEDS ORDERED: CLIN300C2 PO ×2 (16:20→18:48)
--- NOTE | 2021-01-08 17:00 | NUR ---
PT WAS GIVEN TEACHING ON PACKING WOUND AND WET TO DRY DRESSING ORDERED BY DR. ESTEVEZ. DAUGHTER AT BEDSIDE. DR. ESTEVEZ STATED HE ALREADY TAUGHT THE PT'S SIGNIFICANT OTHER HOW TO PACK WOUND. PT VERBALIZED UNDERSTANDING.
[2021-01-08 17:12] VITALS: BP 129/88
--- NOTE | 2021-01-08 18:48 | NUR ---
PT STATED PHARMACY WHERE MEDICATION WAS SENT TO IS NO LONGER IN BUSINESS. CALLED DR. ESTEVEZ AND CHANGED PHARMACY TO [facility] IN [place]. AD[address]ESS [address] [place] [id number]. INFORMED THE PT.
--- NOTE | 2021-01-08 18:50 | NUR ---
PT WAS DISCHARGED FROM THE HOSPITAL. PT WAS DISCHARGED VIA WHEELCHAIR. AMBULATED TO CAR WHERE SIGNIFICANT OTHER PICKED HER UP. PRIOR TO DISCHARGE, IV WAS REMOVED AND BLEEDING WAS CONTROLLED. DRESSING WAS CHANGED ON RIGHT BREAST. ID BAND WAS ALSO REMOVED. PT CHANGED INTO OWN CLOTHING. PT ATE DINNER WITH NO DISTRESS. VS ARE STABLE.
== END 2021-01-08 18:55 | disposition home or self-care (01) | DRG 720 ==
LOC: MED 21:42 → MTU 01-07 00:54 → MMU 01-07 05:51
PROVIDERS: ADMIT Hospitalist; ATTEND Hospitalist
DX: A41.9 Sepsis, unspecified organism (principal); D50.9 Iron deficiency anemia, unspecified; E66.9 Obesity, unspecified; N61.1 Abscess of the breast and nipple; E87.6 Hypokalemia; R73.9 Hyperglycemia, unspecified; Z20.822 Contact with and (suspected) exposure to COVID-19; Z79.899 Other long term (current) drug therapy; Z88.0 Allergy status to penicillin; Z88.8 Allergy status to other drugs, medicaments and biological substances; Z68.38 Body mass index [BMI] 38.0-38.9, adult
CPT/HCPCS: 36415; 76641; 80048; 80053; 82728; 83540; 83605; 83735; 84100; 84703; 85025; 85610; 85730; 86886; 86900; 86901; 87040; 87070; 87075; 87205; 96361; 96365; 96375; 99285; J1100; J1200; J1885; J2001; J2270; J2405; J2543; J2704; J2765; J3010; J3490; J7060; J7120; Q0092

== ENCOUNTER 2021-04-29 11:16 | Emergency (ER) | payer SELFPAY ==
[~2021-04-29] VITALS: Ht 157.5 cm; Wt 97.5 kg
[~2021-04-29 11:16] MED LIST changes: +CLIN300C2 PO; -FERR325E14 PO; -NITR100C7 PO
[2021-04-29 11:36] VITALS: BP 157/87
[2021-04-29] MEDS ORDERED: NAPR-54 PO (12:24)
[2021-04-29] MEDS ORDERED: CEPH-588 PO (12:24)
--- NOTE | 2021-04-29 13:17 | NUR ---
Patient discharged with v/s stable. Written and verbal after care instructions given and explained. Patient alert, oriented and verbalized understanding of instructions. Ambulatory with steady gait. All questions addressed prior to discharge. ID band removed. Patient advised to follow up with PMD. Rx of KEFLEX AND NAPROXEN given. Patient educated on indication of medication including possible reaction and side effects. Opportunity to ask questions provided and answered.
[2021-04-29 13:18] VITALS: BP 148/83
== END 2021-04-29 13:17 | disposition home or self-care (01) ==
LOC: MED 11:16
DX: N61.0 Mastitis without abscess (principal); Z88.1 Allergy status to other antibiotic agents; Z79.899 Other long term (current) drug therapy; Z90.49 Acquired absence of other specified parts of digestive tract
CPT/HCPCS: 99283

== ENCOUNTER 2022-11-19 00:55 | Inpatient (IN) | payer MEDICAID ==
[~2022-11-19] VITALS: Ht 157.5 cm; Wt 89.0 kg
[2022-11-19] VITALS (7 sets, daily range): BP systolic 112–145; BP diastolic 66–90; PULSE 68–87; RESP 12–19; TEMP 97.6–98.2; O2SAT 99–100
[~2022-11-19 00:55] MED LIST changes: +CEPH-588 PO; +NAPR-54 PO
--- NOTE | 2022-11-19 01:06 | NUR ---
TO BED AMBULATORY
--- NOTE | 2022-11-19 01:37 | NUR ---
42 YO F BIB SELF C/O ABD PAIN X 2 WEEKS. NON RADIATING. STATES SHE HAS FELT WORSENING SHARP ABD PAIN X 2 WEEKS. STATES SHE CAN NOT WORK BECAUSE THE PAIN BECOMES WORSE WHILE SHE IS WORKING. 9/10 PAIN. - VOMITING/DIARRHEA. +NAUSEA STARTING TODAY. BED IN LOWEST POSITION. SIDE RAILS UP X2. CALL LIGHT WITHIN REACH. ALLERGIES: PIPERACILLIN, TAZOBACTAM MED HX: SURGICAL CYST REMOVAL UNDER RIGHT BREAST.
--- NOTE | 2022-11-19 01:53 | NUR ---
Patient being evaluated by physician at bedside.
[2022-11-19 02:09] LABS: APPEARANCE,URINE SL CLOUDY (CLEAR); BILIRUBIN,URINE NEGATIVE (NEGATIVE); BLOOD, URINE NEGATIVE (NEGATIVE); COLOR,URINE YELLOW (YELLOW); LEUKOCYTE ESTERASE ,URINE 1+ (NEGATIVE); NITRITE, URINE NEGATIVE (NEGATIVE); UGLUCOSE NEGATIVE (NEGATIVE)
[2022-11-19 02:10] LABS: BASOPHILS % (AUTO) 0.6 % (0.0-2.0); EOSINOPHILS # (AUTO) 0.3 K/uL (0-0.4); EOSINOPHILS % (AUTO) 4.1 % (0.0-4.0); HEMATOCRIT 22.6 % (36-48); LYMPHOCYTES # (AUTO) 2.8 K/uL (2.5-16.5); LYMPHOCYTES % (AUTO) 42.6 % (20.5-51.1); MEAN CORPUSCULAR HEMOGLOBIN 17 pg (27-31); MEAN CORPUSCULAR HGB CONC 29 g/dL (33-37); MEAN CORPUSCULAR VOLUME 56.9 fL (80-94); MONOCYTES # (AUTO) 0.5 K/uL (0.8-1.0); MONOCYTES % (AUTO) 7.4 % (1.7-9.3); NEUTROPHILS % (AUTO) 45.3 % (42.2-75.2); PLATELET COUNT (AUTO) 348 K/uL (140-450); RED BLOOD CELL COUNT(AUTO) 3.97 MIL/uL (4.20-5.40); RED CELL DISTRIBUTION WIDTH 21.7 % (11.6-13.7); WHITE BLOOD COUNT (AUTO) 6.6 K/uL (4.8-10.8)
[2022-11-19 02:12] LABS: HEMOGLOBIN 6.6 g/dL (12.0-16.0)
[2022-11-19 02:14] LABS: RBC,URINE 0-5 /HPF (0-5)
[2022-11-19 02:27] LABS: ALBUMIN 3.4 g/dL (3.4-5.0); CARBON DIOXIDE 26.1 mmol/L (21-32); CREATININE 0.7 mg/dL (0.6-1.3); POTASSIUM 3.1 mmol/L (3.5-5.1); TOTAL BILIRUBIN 0.4 mg/dL (0.0-1.0)
--- NOTE | 2022-11-19 02:29 | NUR ---
PT TAKEN FOR CT
--- NOTE | 2022-11-19 02:40 | NUR ---
PT BACK FROM CT
--- NOTE | 2022-11-19 03:29 | NUR ---
Ultrasound at bedside.
[2022-11-19] MEDS ORDERED: LEVOFLOXACIN 750 MG/D5W PREMIX 150 ML IV ONE (04:00)
[2022-11-19] MEDS ORDERED: POTASSIUM CHLORIDE 10 MEQ TABER PO ONE (04:00)
--- NOTE | 2022-11-19 04:20 | NUR ---
PENDING ADMISSION ORDERS. PT TO RECIEVE BLOOD PRODUCTS
[2022-11-19] MEDS ORDERED: ACETAMINOPHEN 325 MG TAB PO PRN (04:25)
[2022-11-19] MEDS ORDERED: POTASSIUM CHLORIDE 10 MEQ TABER PO PRN ×2 (04:25→09:25)
[2022-11-19] MEDS ORDERED: DOCUSATE SODIUM 100 MG GELCAP PO PRN (04:25)
[2022-11-19] MEDS ORDERED: guaiFENesin DM 200/20 MG-10 ML 10 ML UDC PO PRN (04:25)
[2022-11-19] MEDS ORDERED: ONDANSETRON 4 MG/2 ML VIAL IM/IVP PRN (04:25)
[2022-11-19] MEDS ORDERED: NACL 0.9% 1,000 ML IV SCH (04:25)
[2022-11-19] MEDS ORDERED: HYDROcodone/APAP 7.5/325 MG 1 TAB PO PRN (04:25)
[2022-11-19] MEDS ORDERED: ZOLPIDEM 5 MG TAB PO PRN (04:25)
--- NOTE | 2022-11-19 04:38 | NUR ---
X-Ray at bedside.
--- NOTE | 2022-11-19 04:55 | NUR ---
BLOOD TRANSFUSION START. MONITORING PT FOR ADVERSE REACTIONS.
[2022-11-19] MEDS ORDERED: ACET-10509 PO (05:00)
--- NOTE | 2022-11-19 05:01 | NUR ---
REPORT CALLED TO HOMERO NAPOLES. WILL TRANSPORT PT TO [facility] FOR CONTINUED CARE AFTER 15 MINUTES OBSERVATION.
--- NOTE | 2022-11-19 05:19 | NUR ---
Patient will be admitted to care of DR KHAN. Admited to TELE. Will go to room 111B. Belongings list completed. Report to ONI VALENTIN.
--- NOTE | 2022-11-19 05:20 | NUR ---
PT WAS ADMITTED TO [facility] DEPARTMENT FROM ER VIA [facility] WITH DIAGNOSIS OF SEVERE MICROSTATIC ANEMIA AND UTI. PT IS AOX4, AMBULATORY, ABLE TO FOLLOW COMMANDS AND ABLE TO VERBALIZE NEEDS. PT IS ON ROOM AIR AND ON NPO DIET. PT HAS IV ON RIGHT AC GAUGE 18 RUNNING WITH BLOOD AT 100ML/HR AND LEFT AC GAUGE 20 RUNNING WITH LEVAQUIN. PT SKIN IS INTACT. PT WAS ORIENTED TO ROOM/HOSPITAL, BED BUTTONS AND CALL LIGHT. ALL SAFETY MEASURES IMPLEMENTED. BED IN LOW POSITION, BED WHEELS ON LOCK AND CALL LIGHT WITHIN REACH.
--- NOTE | 2022-11-19 07:00 | NUR ---
RECEIVED BEDSIDE REPORT FROM NIGHTSHIFT NURSE. PT IS ASLEEP IN BED, WOKE TO NAME AND TOUCH. PT STABLE, NO REPORTS OF PAIN OR DISCOMFORT. PT HAVE BLOOD RUNNING. CALL LIGHT WITHIN REACH. WILL CONTINUE WITH CARE.
[2022-11-19] MEDS ORDERED: PANTOPRAZOLE 40 MG TABEC PO SCH (09:00)
--- NOTE | 2022-11-19 09:00 | NUR ---
BLOOD ADMIN DONE. PT VS STABLE. CALL LIGHT WITHIN REACH. WILL CONTINUE WITH CARE.
--- NOTE | 2022-11-19 09:00 | NUR ---
PATIENT HAS BEEN SCREENED AND CATEGORIZED LOW NUTRITION RISK. PATIENT WILL BE SEEN WITHIN 7 DAYS OF ADMISSION. 11/26/[address]
[2022-11-19 09:13] LABS: BASOPHILS # (AUTO) 0.1 K/uL (0.00-0.22); BASOPHILS % (AUTO) 0.9 % (0.0-2.0); EOSINOPHILS # (AUTO) 0.3 K/uL (0-0.4); EOSINOPHILS % (AUTO) 4.4 % (0.0-4.0); HEMOGLOBIN 7.8 g/dL (12.0-16.0); LYMPHOCYTES # (AUTO) 1.7 K/uL (2.5-16.5); LYMPHOCYTES % (AUTO) 28.9 % (20.5-51.1); MEAN CORPUSCULAR HEMOGLOBIN 18 pg (27-31); MEAN CORPUSCULAR HGB CONC 30 g/dL (33-37); MEAN CORPUSCULAR VOLUME 60.7 fL (80-94); MONOCYTES # (AUTO) 0.5 K/uL (0.8-1.0); MONOCYTES % (AUTO) 8.2 % (1.7-9.3); NEUTROPHILS # (AUTO) 3.4 K/uL (1.8-7.7); NEUTROPHILS % (AUTO) 57.6 % (42.2-75.2); PLATELET COUNT (AUTO) 345 K/uL (140-450); RED BLOOD CELL COUNT(AUTO) 4.28 MIL/uL (4.20-5.40); RED CELL DISTRIBUTION WIDTH 24.9 % (11.6-13.7); WHITE BLOOD COUNT (AUTO) 5.9 K/uL (4.8-10.8)
[2022-11-19] MEDS ORDERED: MAG SULF 2000 MG/WATER PREMIX 50 ML IV PRN (09:25)
[2022-11-19 09:29] LABS: ALBUMIN 3.2 g/dL (3.4-5.0); CARBON DIOXIDE 25.9 mmol/L (21-32); CREATININE 0.6 mg/dL (0.6-1.3); POTASSIUM 3.9 mmol/L (3.5-5.1); TOTAL BILIRUBIN 0.5 mg/dL (0.0-1.0)
--- NOTE | 2022-11-19 19:17 | NUR ---
ENDORSED TO NIGHTSHIFT NURSE FOR CONTINUITY OF CARE. PT IS STABLE, NO SIGNS OF DISTRESS, NO REPORTS OF PAIN/DISCOMFORT. CALL LIGHT WITHIN REACH. NO FURTHER NEEDS ARE TO BE MET AT THIS TIME.
--- NOTE | 2022-11-19 21:10 | NUR ---
PT SEEN BY DR. LEMA , PER DR. LEMA PT IS OK FOR DISCHARGE HOME AUGUSTIN , INFORMED DR. DESAI - WILL WAIT FURTHER ORDER FROM DR. DESAI . Addendum: 11/19/22 at 2259 by Maryann Nieto RN DISCHARGE HOME BY DR. DESAI , NO RX HOME MEDS PRESCRIBED .
--- NOTE | 2022-11-19 22:50 | NUR ---
DISCHARGE INSTRUCTIONS GIVEN . ALL QUESTIONS AND CONCERN ANSWERED . PT. VERBALIZED UNDERSTANDING . DISCHARGED PACKET GIVEN TO PT.
--- NOTE | 2022-11-19 22:52 | NUR ---
2 IV SITES REMOVED , BOTH IV NEEDLE INTACT , MIN. BLEEDING . DENIES PAIN .
--- NOTE | 2022-11-19 22:55 | NUR ---
DISCHARGED PT IN STABLE CONDITION , BP 112/66 , RR 18 , IN 75 , T 98.2 F , DENIES ANY PAIN , AMBULATORY , ACCOMPANIED BY HER BOYFRIEND .
== END 2022-11-19 22:55 | disposition home or self-care (01) | DRG 463 ==
LOC: MED 00:55 → MTU 04:27
PROVIDERS: ADMIT Student in an Organized Health Care Education/Training Program; ATTEND Student in an Organized Health Care Education/Training Program
PROC: 30233N1 Transfusion of Nonautologous Red Blood Cells into Peripheral Vein, Percutaneous Approach (ICD-10-PCS; principal; 2022-11-19)
DX: N39.0 Urinary tract infection, site not specified (principal); D62 Acute posthemorrhagic anemia; T83.32XA Displacement of intrauterine contraceptive device, initial encounter; X58.XXXA Exposure to other specified factors, initial encounter; Z90.49 Acquired absence of other specified parts of digestive tract; Z88.8 Allergy status to other drugs, medicaments and biological substances
CPT/HCPCS: 36415; 36430; 71045; 76856; 80053; 81001; 83690; 85025; 86886; 86900; 86901; 86920; 87040; 87081; 87086; 96365; 99285; J0696; J1956; J7060; P9016; Q0092; Q9967